=== PATIENT | female | born 1985 | race American Indian/Alaskan Native ===

== ENCOUNTER 2018-10-05 13:17 | Emergency (ER) | payer SELFPAY ==
[2018-10-05] MEDS ORDERED: DUONEB *Not for PRN Use IH ONE (13:25)
--- NOTE | 2018-10-05 13:26 | Emergency Department Report ---
Chief Complaint: Upper Respiratory Infection Stated Complaint: BANDAR ASTHMA Time Seen by Provider: 10/05/18 13:22 - HPI History of Present Illness: This is a 33 y.o. F. that presents to the ER with SOB x 3 months. Reports productive cough. PMH bronchitis Current smoker 1/2 ppd. MSE screening note: Focused history and physical exam performed. Due to findings the following was ordered: This initial assessment/diagnostic orders/clinical plan/treatment(s) is/are subject to change based on patient's health status, clinical progression and re- assessment by fellow clinical providers in the ED. Further treatment and workup at subsequent clinical providers discretion. Patient/guardians urged not to elope from the ED as their condition may be serious if not clinically assessed and managed. Initial orders include: CXR ACC for further evaluation. ED Disposition for MSE Condition: Stable
--- NOTE | 2018-10-05 14:12 | XRay Report ---
ROUTINE CHEST, TWO VIEWS: HISTORY: Cough. The trachea, heart, mediastinal contour, lung garcia and bony thorax are unremarkable. IMPRESSION: Unremarkable chest x-ray.
--- NOTE | 2018-10-05 14:31 | Emergency Department Report ---
Minor Respiratory - HPI Chief Complaint: Upper Respiratory Infection Stated Complaint: BANDAR ASTHMA Time Seen by Provider: 10/05/18 13:22 Severity: mild Minor Respiratory: Yes Cough, No Rhinorrhea, No Sore Throat, No Able to Tolerate Fluids, No Ear Pain, No Sick Contacts, No Hemoptysis, No Chest Pain, No Shortness of Breath, No Fever Other History: This is a 33-year-old female with a history of anxiety presents to ED complaining of 3 months of intermittent dry to productive cough. Patient denies fever/ chills/nausea and vomiting. Patient's physician is daughter's inhaler but ran out. She denies chest pain shortness of breath ED Review of Systems ROS: Stated complaint: BANDAR ASTHMA Other details as noted in HPI Comment: All other systems reviewed and negative ED Past Medical Hx - Past Medical History Hx Asthma: Yes - Surgical History Additional Surgical History: rt shoulder - Social History Smoking Status: Current Every Day Smoker Substance Use Type: Alcohol - Medications Home Medications: Home Medications Medication Instructions Recorded Confirmed Last Taken Type ALBUTEROL Inhaler (OR & NICU) 2 puff IH PRN PRN #1 pump 10/05/18 Unknown Rx [ProAir HFA Inhaler] Benzonatate [Tessalon Perles] 100 mg PO Q8HR #20 capsule 10/05/18 Unknown Rx methylPREDNISolone [Medrol 4MG 4 mg PO DAILY #1 tab.ds.pk 10/05/18 Unknown Rx DOSEPAK (21 tabs)] Minor Respiratory Exam - Exam General: Vital signs noted. No distress. Alert and acting appropriately. HEENT: Yes Moist Mucous Membranes, No Pharyngeal Erythema, No Pharyngeal Exudates, No Rhinorrhea, No Conjuctival Injection, No Frontal Tenderness, No Maxillary Tenderness Ear: Neither TM Bulge, Neither TM Erythema, Neither EAC Pain, Neither EAC Discharge Neck: Yes Supple, No Adenopathy Lungs: Yes Good Air Exchange, No Wheezes, No Ronchi, No Stridor, No Cough, No Labored Respirations, No Retractions, No Use of Accessory Muscles, No Other Abnormal Lung Sounds Heart: Yes Regular, No Murmur Abdomen: Yes Normal Bowel Sounds, No Tenderness, No Peritoneal Signs Skin: No Rash, No Edema Neurologic: Alert and oriented, no deficits. Musculoskeletal: Unremarkable. ED Course Vital Signs 10/05/18 13:38 Respiratory 17 Rate ED Medical Decision Making - Radiology Data Radiology results: report reviewed, image reviewed HISTORY: Cough. The trachea, heart, mediastinal contour, lung garcia and bony thorax are unremarkable. IMPRESSION: Unremarkable chest x-ray. Transcribed By: TTR Dictated By: KY AZUL JR, MD Electronically Authenticated By: KY AZUL JR, MD Signed Date/Time: 10/05/18 1406 - Medical Decision Making 18-year-old female presents with chronic bronchitis. Patient received medication in the ED. Chest x-ray shows no acute findings see reported above. Vital signs are stable patient is in no acute distress or respiratory distress. Discussed the patient will follow up with primary care physician. Critical care attestation.: If time is entered above; I have spent that time in minutes in the direct care of this critically ill patient, excluding procedure time. ED Disposition Clinical Impression: Bronchitis Disposition: [id number] TO HOME OR SELFCARE Is pt being admited?: No Does the pt Need Aspirin: No Condition: Stable Instructions: Chronic Bronchitis (ED) Additional Instructions: Make sure to follow up with the primary care physician as discussed. Take all your medications as you've been prescribed. If you have any worsening symptoms or develop new symptoms please return to ED immediately. Prescriptions: methylPREDNISolone [Medrol 4MG DOSEPAK (21 tabs)] 4 mg PO DAILY #1 tab.ds.pk ALBUTEROL Inhaler (OR & NICU) [ProAir HFA Inhaler] 2 puff IH PRN PRN #1 pump PRN Reason: Shortness Of Breath Benzonatate [Tessalon Perles] 100 mg PO Q8HR #20 capsule Referrals: [facility] [Provider Group] - 3-[address] [facility] [Outside] - 3-5 Days [facility] [Outside] - 3-5 Days Forms: Accompanied Note, Work/School Release Form(ED) Time of Disposition: 14:31
[2018-10-05 15:13] VITALS: BP 136/85
== END 2018-10-05 15:19 | disposition home or self-care (01) ==
LOC: ED 13:17
DX: J40 Bronchitis, not specified as acute or chronic (principal); F17.200 Nicotine dependence, unspecified, uncomplicated
CPT/HCPCS: 71046